=== PATIENT | female | born 2000 | race Caucasian/White ===

== ENCOUNTER 2022-10-30 20:57 | Emergency (ER) | payer OTHER, SELFPAY ==
[2022-10-30 20:59] VITALS: BP 151/85; PULSE 101; RESP 16; TEMP 37.3; O2SAT 99; BMI 54.6
--- NOTE | 2022-10-30 23:07 | HMH.EDSKAF ---
Discharge Plan Disposition Patient Disposition: Home, Self-Care Prescriptions Prescriptions: New minocycline 100 mg Capsule 100 mg PO BID Qty: 20 0RF clindamycin HCl 300 mg capsule 300 mg PO Q8H 7 Days Qty: 21 0RF No Action norgestimate-ethinyl estradiol [Sprintec (28)] 0.25-35 mg-mcg tablet 1 tab PO DAILY Qty: 28 9RF Referrals Follow up/Referrals: Jamil Baker [Primary Care Provider] - See instructions Clinical Impressions Clinical Impression: Cellulitis Instructions Patient Instructions: Cellulitis Discharge ED Provider: Navarro (ED)Demetrio Skin/Abscess/FB HPI General Chief complaint: Skin/Abscess/Foreign Body Stated complaint: Cyst onleft side of neck Time Seen by Provider: 10/30/22 23:07 Mode of Arrival: Ambulatory Source of Information: Patient and Medical Record Limitations: No Limitations Description of Symptoms (Recalled from ER Triage Doc. by RN): pt c/o a cyst on the lt side of neck x one month. no redness or warmth noted History of Present Illness HPI narrative: lt sided neck swelling with enlarged and tender over the last week MD complaint: abscess/boil Onset (ago): day(s) Location: neck Severity: moderate Associated symptoms: denies other symptoms Treatments prior to arrival: none Related Data Previous Rx's Medication Instructions Recorded norgestimate 0.25 mg-ethinyl 1 tab PO DAILY #28 tabs 05/09/22 estradiol 35 mcg tablet (Sprintec (28)) clindamycin HCl 300 mg capsule 300 mg PO Q8H 7 days #21 caps 10/30/22 minocycline 100 mg capsule 100 mg PO BID #20 caps 10/30/22 Allergies Allergy/AdvReac Type Severity Reaction Status Date / Time Sulfa (Sulfonamide Allergy Mild rash Verified 02/14/22 14:21 Antibiotics) [facility] Disclaimer: The information contained in this section may have been updated after the patient was seen, as this information can be updated by other users. Social History Smoking Status: Never smoker alcohol intake: never substance use type: denies use current occupational status: employed Travel in the last 8 weeks: None ROS Obtained: Yes All systems reviewed & no additional complaints except as documented Physical Exam General General appearance: alert Head Head exam: normocephalic Eye Eye exam: Present PERRL and EOMI ENT ENT exam: Present mucous membranes moist Neck Neck exam: Present trachea midline Respiratory Respiratory exam: Absent respiratory distress Cardiovascular Cardiovascular exam: Present regular rate Extremities Exam Extremities exam: Present full ROM Neurological Exam Neurological exam: Present alert and CN II-XII intact Skin Skin exam: Present other (tender 2x1 cm indurated area lt lat neck - no abscess but appears cellulitis ) Medical Decision Making Medical Records Medical records reviewed: Yes I reviewed the patient's medical records. Bernardo Inquiry Pt receiving controlled substance: No Vital Signs: 10/30/22 20:59 Temperature 99.1 F Temperature Source Oral Pulse Rate [Right] 101 H Respiratory Rate 16 Blood Pressure [Right Arm] 151/85 H Blood Pressure Mean [Right Arm] 107 02 Sat by Pulse Oximetry 99 Lab Data Lab results reviewed: Yes I reviewed the patient's lab results. Medical Decision Narrative: has prob cellulitis lt lat neck and will use warm compresses and abx and check culture Critical Care Time Critical Care Time Critical Care Time: No Attestation: On 10/30/22, the high probability of a clinically significant, sudden or life threatening deterioration of the following system(s) required my full and direct attention, intervention and personal management. The time I documented below is in addition to time spent performing reported procedures but includes the following listed in this critical care notation.
[2022-10-30 23:20] VITALS: BP 145/74; PULSE 91; RESP 16; TEMP 37.3; O2SAT 99
== END 2022-10-30 23:32 | disposition home or self-care (01) ==
PROVIDERS: Emergency Provider Emergency Medicine; PCP Pediatrics
DX: L03.221 Cellulitis of neck (principal)
CPT/HCPCS: 87070; 87077; 87186; 87205; 99283; 99284

== ENCOUNTER 2023-08-10 17:33 | Emergency (ER) | payer OTHER, SELFPAY ==
[2023-08-10 17:39] VITALS: BP 135/88; PULSE 104; RESP 20; TEMP 36.8; O2SAT 100; BMI 54.6
--- NOTE | 2023-08-10 17:53 | HMH.EDGENADL ---
Discharge Plan Disposition Patient Disposition: Home, Self-Care Prescriptions Prescriptions: No Action norgestimate-ethinyl estradiol [Sprintec (28)] 0.25-35 mg-mcg tablet 1 tab PO DAILY Qty: 28 9RF minocycline 100 mg Capsule 100 mg PO BID Qty: 20 0RF clindamycin HCl 300 mg capsule 300 mg PO Q8H 7 Days Qty: 21 0RF Referrals Follow up/Referrals: Stan Mcrae MD [Physician] - See instructions Mason Baker [Primary Care Provider] - See instructions Activity Restrictions/Add. Instructions Additional Instructions/Restrictions: You have a nonspecific and benign appearing soft tissue growth at the junction of your soft palate and your tonsil region. This is not causing any airway compromise or emergent medical condition but I do recommend you follow-up with our ENT doctor for further evaluation and treatment of this. Clinical Impressions Clinical Impression: Lesion of soft palate Instructions Patient Instructions: DI for Skin Abscess Discharge ED Provider: Roz Wilks General Adult HPI General Chief complaint: Skin/Abscess/Foreign Body Stated complaint: sore throat Time Seen by Provider: 08/10/23 17:40 Mode of Arrival: Ambulatory Source of Information: Patient Limitations: No Limitations Description of Symptoms (Recalled from ER Triage Doc. by RN): small growth to r inner mouth History of Present Illness HPI narrative: Patient is a 22-year-old female presents today with a soft tissue growth in the right side of her mouth. States that she first noticed this a month ago but it completely went away she subsequently had a mild URI again the symptoms have resolved but over the last 3 days she noticed a small growth on the superior lateral aspect of her soft palate and her tonsil region. 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 Related Data Previous Rx's Medication Instructions Recorded norgestimate 0.25 mg-ethinyl 1 tab PO DAILY #28 tabs 05/09/22 estradiol 35 mcg tablet (Sprintec (28)) clindamycin HCl 300 mg capsule 300 mg PO Q8H 7 days #21 caps 10/30/22 minocycline 100 mg capsule 100 mg PO BID #20 caps 10/30/22 Allergies Allergy/AdvReac Type Severity Reaction Status Date / Time Sulfa (Sulfonamide Allergy Mild rash Verified 02/14/22 14:21 Antibiotics) [facility] Disclaimer: The information contained in this section may have been updated after the patient was seen, as this information can be updated by other users. Social History Smoking Status: Never smoker alcohol intake: never substance use type: denies use current occupational status: employed Travel in the last 8 weeks: None ROS Obtained: Yes All systems reviewed & no additional complaints except as documented Physical Exam General General appearance: alert Expanded ENT Exam Open Mouth Image: 1. Very small soft tissue abnormality at the junction of the right soft palate and tonsillar region, flesh-colored. No airway compromise no trismus. No evidence of large mass. Overall the soft tissue irregularity is about 0.5 cm x 0.2 cm. Respiratory Respiratory exam: Present normal lung sounds bilaterally Cardiovascular Cardiovascular exam: Present regular rate Neurological Exam Neurological exam: Present alert and oriented X3 Medical Decision Making Bernardo Inquiry Pt receiving controlled substance: No Vital Signs: 08/10/23 17:39 Temperature 98.3 F Temperature Source Oral Pulse Rate [Right Radial] 104 H Respiratory Rate 20 Blood Pressure [Right Arm] 135/88 Blood Pressure Mean [Right Arm] 103 02 Sat by Pulse Oximetry 100 Oxygen Delivery Method Room Air Medical Decision Narrative: Patient is a 22-year-old female presents today with oral lesion that is nonspecific. She has no significant risk factors does not have a history of smoking or dipping this soft tissue abnormality is benign in appearance and flesh-colored but not emergent. I advised that she follow-up with an ENT doctor for further evaluation and management of this soft tissue lesion. I believe she is very low risk that this is cancerous and told her this is most likely benign but that given the fact that this is a new soft tissue abnormality she needs to follow-up with ENT to make sure that it resolves and/or his biopsy to ensure that it is benign. No evidence of pharyngitis. It is unclear why she was told to follow-up with [facility] for [facility]. She was given a referral to Dr. Mcrae here at [facility] for further evaluation she was reassured and discharged in stable condition. Critical Care Critical Care Time Critical Care Time: No
[2023-08-10 17:55] VITALS: BP 135/88; PULSE 90; RESP 18; TEMP 36.7; O2SAT 100
== END 2023-08-10 17:56 | disposition home or self-care (01) ==
PROVIDERS: Emergency Provider Student in an Organized Health Care Education/Training Program; PCP Internal Medicine
DX: R22.0 Localized swelling, mass and lump, head (principal); R07.0 Pain in throat
CPT/HCPCS: 99283